=== PATIENT | female | born 1960 | race Caucasian/White ===

== ENCOUNTER 2017-04-21 16:08 | Emergency (ER) | payer MEDICARE ==
[~2017-04-21 16:08] MED LIST: ARICEPT10 PO; ATEN50 PO; BI EST SL; CENTRUM TAB1 TAB PO; CIP5 PO; CLARIT10 PO; DHEA PO; FLEX PO; IMITREX; IMITREX100 MG PO; IRON325 MG PO; PAX20 PO; PROBIOTIC PO; RESCUE INHALER; RX CREAM TOP; ULTRAM50 PO; VALERIAN PO; VITAMIN B-12 PO; X5 PO; [UNRECOGNIZED DRUG - OTHER] SL
== END 2017-04-21 17:25 | disposition home or self-care (01) ==
LOC: ER 16:08
DX: M79.604 Pain in right leg (principal); Z88.2 Allergy status to sulfonamides; Z79.899 Other long term (current) drug therapy; W19.XXXA Unspecified fall, initial encounter
CPT/HCPCS: 93971; 99283